=== PATIENT | male | born 1990 | race African-American/Black ===

== ENCOUNTER 2019-07-16 20:02 | Emergency (ER) | payer SELFPAY ==
[~2019-07-16] VITALS: Ht 172.7 cm; Wt 95.0 kg
[2019-07-16 23:42] LABS: BASOPHILS % 0.5 % (0.0-2.0); EOSINOPHILS % 0.6 % (0.0-5.0); HEMATOCRIT. 47.5 % (42.0-52.0); HEMOGLOBIN. 15.6 g/dL (14.0-18.0); LYMPHOCYTES % 16.5 % (20.0-50.0); MEAN CORPUSCULAR HEMOGLOBIN 28.2 pg (28.0-32.0); MEAN CORPUSCULAR VOLUME 85.7 fL (80.0-94.0); MEAN PLATELET VOLUME 8.5 fl (7.4-10.4); NEUTROPHILS % 75.4 % (40.0-76.0); PLATELET 291 x1000/uL (130-400); RED BLOOD CELL COUNT 5.54 mill/uL (4.7-6.1); RED CELL DISTRIBUTION WIDTH 13.7 % (11.6-14.6)
[2019-07-16 23:49] LABS: CHLORIDE 109 mEq/L (98-107)
[2019-07-17] MEDS ORDERED: VISCOUS LIDOCAINE 2% 15 ML UDC MM SCH (00:45)
[2019-07-17] MEDS ORDERED: MAGNESIUM HYDROXIDE 400MG/5ML 30ML UDC PO SCH (00:51)
[2019-07-17] MEDS ORDERED: KETOROLAC 30MG/ML VIAL IV ONE (01:30)
[2019-07-17 02:30] VITALS: BP 142/88
== END 2019-07-17 02:35 | disposition home or self-care (01) ==
LOC: ER 20:02
DX: I31.9 Disease of pericardium, unspecified (principal); R07.9 Chest pain, unspecified
CPT/HCPCS: 36415; 71045; 80053; 83690; 83880; 84484; 85025; 85379; 93005; 96374; 99284; J1885